=== PATIENT | female | born 1990 | race Caucasian/White ===

== ENCOUNTER 2022-04-30 12:03 | Emergency (ER) | payer BC, OTHER ==
[2022-04-30 12:12] VITALS: BP 122/79; PULSE 85
[2022-04-30] MEDS: Ketorolac 30 MG/ML SDV IM ONE (12:19)
== END 2022-04-30 12:55 | disposition home or self-care (01) ==
LOC: KA.ED 12:03
DX: M25.512 Pain in left shoulder (principal); Z88.8 Allergy status to other drugs, medicaments and biological substances; Z88.1 Allergy status to other antibiotic agents; Z91.030 Bee allergy status
CPT/HCPCS: 73030-LT; 73070-LT; 96372; 99283; J1885

== ENCOUNTER 2023-07-02 13:22 | Emergency (ER) | payer SELFPAY ==
[2023-07-02 13:40] LABS: BASOPHILS ABSOLUTE AUTO 0.04 10^3/uL (0.00-0.10); BASOPHILS PERCENT AUTO 0.4 % (0.0-1.0); EOSINOPHILS PERCENT AUTO 1.1 % (1.0-3.0); HEMATOCRIT 41.4 % (37.0-47.0); HEMOGLOBIN 13.9 g/dL (12.0-16.0); IMMATURE GRAN ABSOLUTE AUTO 0.01 10^3/uL (0.00-0.50); IMMATURE GRAN PERCENT AUTO 0.1 % (0.0-5.0); LYMPHOCYTES ABSOLUTE AUTO 4.43 10^3/uL (1.00-4.00); LYMPHOCYTES PERCENT AUTO 48.9 % (20.0-40.0); MEAN CORPUSCULAR HEMOGLOBIN 30.3 pg (27.0-31.0); MEAN CORPUSCULAR HGB CONC 33.6 g/dL (32.0-36.0); MEAN CORPUSCULAR VOLUME 90.4 fL (82.0-92.0); MEAN PLATELET VOLUME 10.6 fL (7.4-10.4); MONOCYTES ABSOLUTE AUTO 0.76 10^3/uL (0.10-0.80); MONOCYTES PERCENT AUTO 8.4 % (2.0-8.0); NEUTROPHILS ABSOLUTE AUTO 3.72 10^3/uL (2.50-7.00); NEUTROPHILS PERCENT AUTO 41.1 % (50.0-70.0); PLATELET COUNT,PLT 198 10^3/uL (150-400); RED BLOOD CELL COUNT 4.58 10^6/uL (3.80-5.50); RED CELL DISTRIBUTION WIDTH 11.8 % (11.5-14.5); WHITE BLOOD CELL COUNT,WBC 9.06 10^3/uL (5.00-10.00)
[2023-07-02 14:03] LABS: ALANINE AMINOTRANSFERASE,ALT 17 U/L (14-63); ALBUMIN 4.42 g/dL (3.40-5.00); ALKALINE PHOSPHATASE 35 U/L (46-116); ANION GAP 14.1 mmol/L (5-15); ASPARTATE AMNIOTRANSFERASE,AST 14 U/L (15-37); BILIRUBIN TOTAL 2.2 mg/dL (0.2-1.0); BLOOD UREA NITROGEN,BUN 9 mg/dL (7-18); CALCIUM 9.2 mg/dL (8.7-10.3); CARBON DIOXIDE,CO2 27.2 mmol/L (21.0-32.0); CHLORIDE,CL 103 mmol/L (98-107); CREATININE 0.55 mg/dL (0.51-1.17); EST CRCL DRUG DOSING (CG) 125.01 mL/min; GLUCOSE RANDOM 96 mg/dL (70-140); POTASSIUM,K 3.3 mmol/L (3.5-5.1); PROTEIN TOTAL,TP 7.6 g/dL (6.4-8.2); SODIUM,NA 141 mmol/L (136-145)
[2023-07-02 14:06] LABS: ESTIMATED GFR 124 mL/min (>=60)
== END 2023-07-02 15:00 | disposition home or self-care (01) ==
LOC: KA.ED 13:22
DX: R07.81 Pleurodynia (principal); R07.89 Other chest pain; Z88.6 Allergy status to analgesic agent; Z91.030 Bee allergy status; Z88.1 Allergy status to other antibiotic agents
CPT/HCPCS: 36415; 71101-LT; 80053; 84484; 84703; 85025; 85379; 93005; 93010; 99284; 99285